=== PATIENT | male | born 1980 | race Caucasian/White ===

== ENCOUNTER 2021-09-07 13:33 | Emergency (ER) | payer OTHER ==
[2021-09-07 13:42] VITALS: TEMP 98.5
--- NOTE | 2021-09-07 22:29 | ED ---
General Adult HPI - General Chief complaint: Extremity Problem,Nontraumatic Stated complaint: Swollen feet Time Seen by Provider: 09/07/21 21:56 Source: patient, RN notes reviewed Mode of arrival: ambulatory Limitations: no limitations - History of Present Illness Initial comments: 41-year-old male with a past medical history of HIV and illicit drug use presents to the emergency department for evaluation of discoloration to the first 3 toes on bilateral feet. Patient states approximately 2 weeks ago his leg swelled and the discoloration followed that event. States the swelling has since completely resolved. Reports a history of neuropathy, though is uncertain of the origin of this diagnosis. Patient denies any pain, injury, or decreased sensation. - Related Data Home Medications Medication Instructions Recorded Confirmed Bictegrav/Emtricit/Tenofov Ala 1 tab PO DAILY 09/07/21 09/07/21 [Biktarvy 50-200-25 mg Tablet] Brexpiprazole [Rexulti] 2 mg PO DAILY 09/07/21 09/07/21 Dextroamphetamine/Amphetamine 10 mg PO BID 09/07/21 09/07/21 [Adderall] Escitalopram [Lexapro] 20 mg PO DAILY 09/07/21 09/07/21 buPROPion XL [Wellbutrin XL] 300 mg PO DAILY 09/07/21 09/07/21 Allergies Allergy/AdvReac Type Severity Reaction Status Date / Time Penicillins Allergy Unknown Verified 09/07/21 22:53 Childhood Review of Systems ROS Statement: Those systems with pertinent positive or pertinent negative responses have been documented in the HPI. ROS Other: All systems not noted in ROS Statement are negative. Past Medical History Past Medical History: No Reported History History of Any Multi-Drug Resistant Organisms: None Reported Past Surgical History: No Surgical Hx Reported Past Psychological History: ADD/ADHD, Anxiety, Depression Smoking Status: Current every day smoker Past Alcohol Use History: None Reported Past Drug Use History: Marijuana General Exam Limitations: no limitations (Well-developed, well-nourished male in no acute distress. Initial temperature 98.5, pulse 80, respirations 20, blood pressure 134/89, pulse ox 99% on room air.) General appearance: alert, in no apparent distress Head exam: Present: atraumatic, normocephalic, normal inspection Eye exam: Present: normal appearance. Absent: scleral icterus, conjunctival injection Respiratory exam: Present: normal lung sounds bilaterally. Absent: respiratory distress, wheezes, rales, rhonchi, stridor Cardiovascular Exam: Present: regular rate, normal rhythm, normal heart sounds. Absent: systolic murmur, diastolic murmur, rubs, gallop, clicks GI/Abdominal exam: Present: soft, normal bowel sounds. Absent: distended, tenderness, guarding, rebound, rigid Left Knee exam: Present: normal inspection, full ROM. Absent: tenderness, swelling Lower Leg exam: Present: normal inspection, full ROM. Absent: tenderness, swelling, erythema, Homans' sign Ankle exam: Present: normal inspection, full ROM. Absent: tenderness, swelling Foot/Toe exam: Present: full ROM. Absent: normal inspection (callouses to distal aspect of digits 1, 2, and 3 bilaterally with small areas of purplish discoloration on those digits. Small areas of brown patchy discoloration on bilateral feet. Skin is warm to touch. Hair growth noted on toes. Toenails appear yellowed and thickened. ), tenderness, swelling Neurovascular tendon exam: Present: no vascular compromise. Absent: pulse deficit, abnormal cap refill, motor deficit, sensory deficit Right Knee exam: Present: normal inspection, full ROM. Absent: tenderness, swelling Lower Leg exam: Present: normal inspection, full ROM. Absent: tenderness, swelling, erythema, Homans' sign Ankle exam: Present: normal inspection, full ROM. Absent: tenderness, swelling Foot/Toe exam: Present: full ROM. Absent: normal inspection (callouses to distal aspect of digits 1, 2, and 3 bilaterally with small areas of purplish discoloration on those digits. Small areas of brown patchy discoloration on bilateral feet. Skin is warm to touch. Hair growth noted on toes. Toenails appear yellowed and thickened. ), tenderness, swelling Neurovascular tendon exam: Present: no vascular compromise. Absent: pulse deficit, abnormal cap refill, motor deficit, sensory deficit Neurological exam: Present: alert, oriented X3, CN II-XII intact Psychiatric exam: Present: normal affect, normal mood Skin exam: Present: warm, dry, intact. Absent: rash Course Vital Signs 09/07/21 09/08/21 13:39 00:50 Temperature 98.5 F Pulse Rate 80 82 Respiratory 20 18 Rate Blood Pressure 134/89 124/84 O2 Sat by Pulse 99 96 Oximetry Medical Decision Making - Medical Decision Making 41-year-old male with a past medical history of HIV and neuropathy presents to the emergency department for evaluation of contusions to toes on both feet. Patient is currently admitted to [facility] for treatment of methamphetamine addiction. States he has been taking his antiviral medications as directed. No injury or trauma to the feet. +2 pedal pulses. Feet are warm to touch. No edema or erythema. Doppler study was obtained showing no evidence of DVT. Laboratory studies were unremarkable. CD4 count pending. I suspect purpleish discoloration at the distal aspect of the toes is related to poor fitting shoes. Encouraged patient to obtain compression socks and we are properly fitting shoes. Suggested following up with his PCP for further evaluation if concerns persist. Return parameters discussed in detail. Patient verbalizes understanding and agrees with this plan. Attending: Amadou. - Lab Data Result diagrams: 09/07/21 22:52 09/07/21 22:52 Lab Results 09/07/21 09/07/21 Range/Units 22:52 22:52 WBC 7.6 (3.8-10.6) k/uL RBC 5.57 (4.30-5.90) m/uL Hgb 17.3 (13.0-17.5) gm/dL Hct 52.6 (39.0-53.0) % MCV 94.3 (80.0-100.0) fL MCH 31.1 (25.0-35.0) pg MCHC 33.0 (31.0-37.0) g/dL RDW 13.0 (11.5-15.5) % Plt Count 265 (150-450) k/uL MPV 7.2 Neutrophils % 55 % Lymphocytes % 32 % Monocytes % 5 % Eosinophils % 6 % Basophils % 1 % Neutrophils # 4.2 (1.3-7.7) k/uL Lymphocytes # 2.4 (1.0-4.8) k/uL Monocytes # 0.4 (0-1.0) k/uL Eosinophils # 0.4 (0-0.7) k/uL Basophils # 0.1 (0-0.2) k/uL Sodium 139 (137-145) mmol/L Potassium 4.0 (3.5-5.1) mmol/L Chloride 106 (98-107) mmol/L Carbon Dioxide 26 (22-30) mmol/L Anion Gap 7 mmol/L BUN 10 (9-20) mg/dL Creatinine 0.94 (0.66-1.25) mg/dL Est GFR (CKD-EPI)AfAm >90 (>60 ml/min/1.73 sqM) Est GFR (CKD-EPI)NonAf >90 (>60 ml/min/1.73 sqM) Glucose 95 (74-99) mg/dL Calcium 8.8 (8.4-10.2) mg/dL Total Bilirubin 0.4 (0.2-1.3) mg/dL AST 20 (17-59) U/L ALT 14 (4-49) U/L Alkaline Phosphatase 71 (38-126) U/L Total Protein 7.5 (6.3-8.2) g/dL Albumin 4.0 (3.5-5.0) g/dL - Radiology Data Radiology results: report reviewed Venous Doppler study of the bilateral lower extremities obtained. Report was reviewed in its entirety. Impression per Dr. Benz is no evidence of deep vein thrombosis in both legs. Disposition Clinical Impression: Contusion, toes Disposition: HOME SELF-CARE Condition: Stable Instructions (If sedation given, give patient instructions): Foot Contusion (ED) Additional Instructions: Consider acquiring compression socks if you continue to have episodes of leg swelling. Wear well-fitting shoes in which your foot is not crammed nor slides around in shoe. Be mindful of your diet; consume foods low in sodium if you notice swelling in your hands, feet, or legs. Follow up with your PCP for a recheck if needed. Return to the emergency department with any new, worsening, or concerning symptoms. Is patient prescribed a controlled substance at d/c from ED?: No Referrals: Nonstaff,Physician [Primary Care Provider] - 1-2 days Time of Disposition: 00:16
--- NOTE | 2021-09-07 22:59 | US ---
EXAMINATION TYPE: US venous doppler duplex LE DATE OF EXAM: 09/07/2021 10:44 PM COMPARISON: NONE CLINICAL HISTORY: BLE discoloration and recent edema. Bilateral foot swelling. SIDE PERFORMED: Bilateral TECHNIQUE: The lower extremity deep venous system is examined utilizing real time linear array sonog ailin with graded compression, doppler sonography and color-flow sonography. VESSELS IMAGED: Common Femoral Vein Deep Femoral Vein Greater Saphenous Vein * Femoral Vein Popliteal Vein Small Saphenous Vein * Proximal Calf Veins (* superficial vessels) Right Leg: Negative for DVT Left Leg: Negative for DVT IMPRESSION: No evidence of deep vein thrombosis in both legs.
[2021-09-07 23:12] LABS: Basophils # (A) 0.1 k/uL (0-0.2); Basophils % (A) 1 %; Eosinophils # (A) 0.4 k/uL (0-0.7); Eosinophils % (A) 6 %; HCT 52.6 % (39.0-53.0); HGB 17.3 gm/dL (13.0-17.5); Lymphocytes # (A) 2.4 k/uL (1.0-4.8); Lymphocytes % (A) 32 %; MCH 31.1 pg (25.0-35.0); MCV 94.3 fL (80.0-100.0); Mean Platelet Volume 7.2; Monocytes # (A) 0.4 k/uL (0-1.0); Monocytes % (A) 5 %; Neutrophils # (A) 4.2 k/uL (1.3-7.7); Neutrophils % (A) 55 %; Platelet Count 265 k/uL (150-450); RBC 5.57 m/uL (4.30-5.90); WBC 7.6 k/uL (3.8-10.6)
[2021-09-07 23:24] LABS: ALT 14 U/L (4-49); AST 20 U/L (17-59); African American GFR (CKD) >90 (>60 ml/min/1.73 sqM); Alkaline Phosphatase 71 U/L (38-126); Anion Gap 7 mmol/L; Blood Urea Nitrogen 10 mg/dL (9-20); Calcium 8.8 mg/dL (8.4-10.2); Carbon Dioxide 26 mmol/L (22-30); Chloride 106 mmol/L (98-107); Glucose 95 mg/dL (74-99); Non-African American GFR(CKD) >90 (>60 ml/min/1.73 sqM); Sodium 139 mmol/L (137-145); Total Bilirubin 0.4 mg/dL (0.2-1.3); Total Protein 7.5 g/dL (6.3-8.2)
[2021-09-08 00:51] VITALS: BP 124/84; PULSE 82; RESP 18
== END 2021-09-08 00:54 | disposition home or self-care (01) ==
LOC: EC 13:33
DX: S90.122A Contusion of left lesser toe(s) without damage to nail, initial encounter (principal); S90.121A Contusion of right lesser toe(s) without damage to nail, initial encounter; F17.200 Nicotine dependence, unspecified, uncomplicated; Z88.0 Allergy status to penicillin; X58.XXXA Exposure to other specified factors, initial encounter
CPT/HCPCS: 36415; 80053; 85025; 86360; 93970; 99284